=== PATIENT | female | born 1940 | race Caucasian/White ===

== ENCOUNTER 2016-07-15 13:28 | Inpatient (IN) | payer OTHER, MEDICARE ==
[~2016-07-15] VITALS: Ht 154.9 cm; Wt 65.0 kg
--- NOTE | 2016-07-23 06:56 | HHI.FF ---
Face to Face Verification Diagnosis: (1) Osteoarthritis of right hip (2) Status post total hip replacement, right Physical Therapy Gait training, Transfer training, bed to chair Hip: Total hip Right LE Weight Bearing: WB as tolerated Right LE Range of Motion: Active ROM Nursing Nursing: Sandee teaching, Dressing changes Dressing Changes: Daily dressing change I have seen patient Erica Cohn on 07/23/16. My clinical findings support the need for the requested home health care services because: Limited ability to care for self High risk of falls I certify that my clinical findings support that this patient is homebound because: Post-op weakness Unsteady gait/balance Nestor Ross Jul 23, 2016 06:56
--- NOTE | 2016-07-23 06:56 | HHI.DCPOC ---
Discharge Care Plan Diagnosis: (1) Osteoarthritis of right hip (2) Status post total hip replacement, right Your Health Problems Are: Difficulty with ADL Goals to Promote Your Health * To prevent worsening of your condition and complications * To maintain your health at the optimal level Directions to Meet Your Goals Take your medications as prescribed Follow your dietary instruction Follow activity as directed Keep your appointments as scheduled Take your immunizations and boosters as scheduled If your symptoms worsen call your PCP, if no PCP go to Urgent Care Center or Emergency Room Smoking is Dangerous to Your Health. Avoid second hand smoke Call the 24-hour hour crisis hotline for domestic abuse at Nestor Ross Jul 23, 2016 06:56
[2016-07-23] MEDS ORDERED: COMMODE 3-IN-11 MIS (06:58)
[2016-07-23] MEDS ORDERED: WALKER WHEELS/F1 MIS (06:58)
[2016-07-23] MEDS ORDERED: FLUT50SP EACH NARE (08:09)
[2016-07-23] MEDS ORDERED: HYDR12.57 PO (08:09)
[2016-07-23] MEDS ORDERED: EPIP0.3I IM (08:09)
[2016-07-23] MEDS ORDERED: OMEP20TA PO (08:09)
[2016-07-23] MEDS ORDERED: LOVA40TA PO (08:09)
[2016-07-23 08:13] VITALS: BP 116/57; PULSE 92; RESP 20; TEMP 97.9; O2SAT 100
[2016-07-23] MEDS ORDERED: DEXAMETHASONE SOD PHOS 20 MG/5 ML VIAL ONE (08:14)
[2016-07-23] MEDS ORDERED: SODIUM CHLOR 0.9% 250 ML INJ 250 ML ONE (08:14)
[2016-07-23] MEDS ORDERED: ceFAZolin 2 GM PREMIX 50 ML ONE (08:14)
[2016-07-23] MEDS ORDERED: LACTATED RINGER'S 1000 ML INJ 1,000 ML ONE (08:14)
[2016-07-23] MEDS ORDERED: VANCOMYCIN HCL 1000 MG VIAL ONE (08:14)
[2016-07-23] MEDS ORDERED: TRANEXAMIC ACID IV SCH (08:22)
[2016-07-23] MEDS ORDERED: SODIUM CHLORIDE 0.9% IV SCH (08:22)
[2016-07-23] MEDS: TRANEXAMIC ACID INJ 650 MG in SODIUM CHLORIDE 0.9% INJ 100 ML IV SCH ×2 (08:27→09:59)
[2016-07-23] MEDS ORDERED: EXPAREL PERI-ARTICULAR INJECTION (TOTAL VOL. 60 ML) P-ARTICULR SCH ×2 (08:30)
[2016-07-23] MEDS: LACTATED RINGER'S 1000 ML IV SCH (08:30)
[2016-07-23] MEDS ORDERED: ceFAZolin 2 GM PREMIX 50 ML IV SCH (08:30)
[2016-07-23] MEDS: SODIUM CHLORID 0.9% 500 ML IV SCH (08:30)
[2016-07-23] MEDS ORDERED: METOPROLOL TARTRATE 25 MG TAB PO PRN (08:30)
[2016-07-23] MEDS ORDERED: VANCOMYCIN 1000 MG/NS 250 ML (for <70 kg) IV SCH ×2 (08:30)
[2016-07-23] MEDS ORDERED: INSULIN HUMAN REGULAR 1,000 UNITS/10 ML VIAL SQ PRN (08:30)
[2016-07-23] MEDS ORDERED: POVIDONE IODINE 7.5% SCRUB 118 ML BOTTLE TOP SCH (08:30)
[2016-07-23] MEDS ORDERED: GENTAMICIN SULFATE 80 MG/2 ML VIAL ONE ×2 (09:01)
[2016-07-23] MEDS ORDERED: DEXAMETHASONE SOD PHOS 4 MG/ML VIAL ONE (09:47)
[2016-07-23] MEDS ORDERED: ACETAMINOPHEN 1000 MG/100 ML VIAL IV ONE (09:47)
[2016-07-23] MEDS ORDERED: FAMOTIDINE 20 MG/2 ML VIAL ONE (09:47)
[2016-07-23] MEDS ORDERED: ONDANSETRON HCL 4 MG/2 ML VIAL IV PUSH ONE (11:26)
[2016-07-23] MEDS ORDERED: PHENYLEPH/NS 1000 MCG/10 ML SYR IV ONE (11:26)
[2016-07-23] MEDS ORDERED: PROPOFOL 200 MG/20 ML AMP IV ONE (11:26)
[2016-07-23] MEDS ORDERED: NEOSTIGMINE 3 MG/3 ML SYR IV ONE (11:26)
[2016-07-23] MEDS ORDERED: LACTATED RINGER'S 1000 ML INJ 1,000 ML IV ONE (11:26)
[2016-07-23] MEDS: SODIUM CHLOR 0.9% 1000 ML INJ 1,000 ML IV SCH ×2 (11:42→22:25)
[2016-07-23] MEDS ORDERED: ONDANSETRON HCL 4 MG/2 ML VIAL IVP PRN (11:45)
[2016-07-23] MEDS ORDERED: MORPHINE SULFATE 4 MG/ML INJ IV PUSH PRN (11:45)
[2016-07-23] MEDS ORDERED: BISACODYL 10 MG SUPP PR PRN (11:45)
[2016-07-23] MEDS ORDERED: diphenhydrAMINE HCL 50 MG/ML VIAL IV PRN (11:45)
[2016-07-23] MEDS ORDERED: ALUMINUM/MAGNESIUM/SIMETH 30 ML CUP PO PRN (11:45)
[2016-07-23] MEDS ORDERED: SODIUM CHLORIDE 0.9% FLUSH 5 ML FLUSH IVF PRN (11:45)
[2016-07-23] MEDS ORDERED: ZOLPIDEM TARTRATE 5 MG TAB PO PRN (11:45)
[2016-07-23] MEDS ORDERED: MAGNESIUM HYDROXIDE SUSP 30 ML CUP PO PRN (11:45)
[2016-07-23] MEDS ORDERED: Post-op Orders (for Pharmacy) MISC XX ONE (11:45)
[2016-07-23] MEDS ORDERED: ACETAMINOPHEN/HYDROcodone 325 MG/5 MG TAB PO PRN (11:45)
[2016-07-23] MEDS ORDERED: NALOXONE HCL 0.4 MG/ML AMP IV PRN (11:45)
[2016-07-23] MEDS ORDERED: EPINEPHrine HCL 0.3 MG SYR IM PRN (11:45)
--- NOTE | 2016-07-23 11:45 | PD.OP ---
cc: Cy Gomez MD Operative Report Date of Surgery: Jul 23, 2016 Preoperative Diagnosis: Right hip severe osteoarthritis Postoperative Diagnosis: Same Procedure: Right total hip arthroplasty Anesthesia: Gen. Surgeon: Cy Gomez Patent Solicitor(s): LIONEL Rubin The surgical procedure was assisted by my Advanced Registered Nurse Practitioner. My AUTOMATIC MACHINES SUPERVISOR presence was necessary throughout this case for the manipulation and positioning of the surgical extremity. My AUTOMATIC MACHINES SUPERVISOR was assisting me throughout the duration of this procedure. The skill set of an Advance Registered Nurse Practitioner was medically necessary to complete this procedure. During the surgical case, the surgical garment assembler was working at the back table and the Advance Registered Nurse Practitioner was directly assisting me. Operation and Findings: IMPLANT DESCRIPTION: 1. [place] Gription Cup, acetabular size 48. 2. [place] AltrX polyethylene, neutral. 4. [place] femoral stem size 10, no collar, standard offset. 5. Femoral head/neck metal, 32, +1. ESTIMATED BLOOD LOSS: 250 cc. JUSTIFICATION FOR PROCEDURE: The patient has end-stage osteoarthritis to the hip. There is an attached conservative measures pathway form in the chart that describes the nonoperative measures that were undertaken prior to consideration of surgical management. The patient understood the risks and benefits of surgical management. See my office notes for further details. PROCEDURE: The patient was brought back to the operative theatre. Adequate anesthesia was obtained. The patient received intravenous vancomycin and Ancef. The patient was carefully placed on the operative table. The lower extremity was prepped and draped in the usual sterile fashion. Fluoroscopic images were obtained. We made a standard anterior incision over the hip. We dissected through the TFL fascia, exposing the anterior capsule. Arthrotomy was performed in a T-shaped fashion. The capsule was tagged with a #2 FiberWire. End-stage arthritis was identified. Osteotomy was performed through the femoral neck exposing the acetabulum. Remnants of the labrum were resected and osteophytes were removed. We sequentially reamed the acetabulum. We trialed the hip and placed the final cup into position. This was done under fluoroscopic guidance to obtain the appropriate inclination and anteversion. A manhole cover was placed into the acetabular component. We then placed the final polyethylene into position and confirmed that it was well seated. Capsular attachments on the calcar and the inner aspect of the greater trochanter were resected. On the proximal aspect of the femur we used a rongeur , box osteotome, canal finder, sequential broaches and lateralizing rasp. We calcar planed the proximal femur. Then thoroughly irrigated the wound. We trialed the hip with the appropriate size stem. We placed the final stem in to position and trialed again. The hip was stable while it was externally rotated 70 degrees when the leg was lowered to the floor. The final head was applied, and final fluoroscopic images were obtained. The wound was thoroughly irrigated again. Interarticular injection of liposomal bupivacaine was given. The capsule was closed with #2 FiberWire and #1 Vicryl. The deep fascia was closed with a #2 Stratafix, followed by 2-0 Vicryl in the skin and ji. Postop plan is to weight-bear as tolerated. DVT prophylaxis will be performed with Mary, ZINA elizabeth, early mobilization, and Lovenox followed by aspirin. Cy Gomez MD Jul 23, 2016 11:45
[2016-07-23] MEDS ORDERED: ASPI325T PO (11:47)
[2016-07-23] MEDS ORDERED: ENOX40P SQ (11:47)
[2016-07-23] MEDS ORDERED: NORC5TAB PO (11:47)
--- NOTE | 2016-07-23 12:00 | RADRPT ---
EXAM DATE/TIME: 07/23/2016 10:31 [facility] COMPARISON: No previous studies available for comparison. INDICATIONS : Post-op total right hip arthroplasty. MEDICAL HISTORY : None. SURGICAL HISTORY : None. ENCOUNTER: Initial ACUITY: 1 day PAIN SCORE: Non-responsive. LOCATION: Right hip. FINDINGS: 3 images from the OR have been submitted. There is a right bipolar hip prosthesis in place. This is w ell placed. CONCLUSION: Successful placement of a bipolar hip prosthesis on the right. Carlos Perez MD on July 23, 2016 at 11:58 Board Certified Radiologist. This report was verified electronically.
[2016-07-23] MEDS ORDERED: fentaNYL CITRATE 250 MCG/5 ML AMP ONE (12:08)
[2016-07-23] MEDS ORDERED: DO NOT ADM ANY ANTICOAGULANT DRUGS XX PRN (12:30)
[2016-07-23] MEDS ORDERED: TRANEXAMIC ACID INJ 650 MG in SODIUM CHLORIDE 0.9% INJ 100 ML IV SCH (13:00)
--- NOTE | 2016-07-23 13:30 | RADRPT ---
EXAM DATE/TIME: 07/23/2016 12:36 [facility] COMPARISON: No previous studies available for comparison. INDICATIONS : Post op right hip surgery. MEDICAL HISTORY : Unobtainable. SURGICAL HISTORY : Unobtainable. ENCOUNTER: Initial ACUITY: 1 day PAIN SCORE: Non-responsive. LOCATION: Right hip. FINDINGS: There is a right bipolar hip prosthesis in place. This appears well placed. Skin ji are seen lat erally. There is degenerative change seen at the left hip joint with joint space narrowing and hypert rophic change. CONCLUSION: Good placement of a right bipolar hip prosthesis. Carlos Perez MD on July 23, 2016 at 13:27 Board Certified Radiologist. This report was verified electronically.
[2016-07-23 15:30] VITALS: BP 117/59; PULSE 83; RESP 16; TEMP 96.6; O2SAT 99
--- NOTE | 2016-07-23 16:29 | PD.CONS ---
[facility] By Reason for Consult Medical management Primary Care Physician Eula Ross M.D. Diagnoses: History of Present Illness Patient is a very pleasant 76-year-old female with history of hypertension, hypercholesterolemia who is admitted under orthopedic services and underwent right total hip arthroplasty today. Patient actually has been dealing with this right hip pain for the past 6 years now however for the last couple of weeks has been getting more pain. She lately has been using a cane for ambulation for safety. Otherwise patient is denies any chest pain shortness of breath. Her breast mammogram and colonoscopy are all up-to-date. [facility]. Review of Systems Constitutional: DENIES: Fever, Weight loss, Chills, Change in appetite Eyes: DENIES: Blurred vision, Double Vision Ears, nose, mouth, throat: DENIES: Tinnitus, Ear Pain, Epistaxis, Odynophagia Respiratory: DENIES: Cough, Hemoptysis, Sputum production, Shortness of breath Cardiovascular: DENIES: Chest pain, Palpitations, Dyspnea on Exertion, Lower Extremity Edema, Orthopnea Gastrointestinal: DENIES: Black stools, Bloody stools, Difficulty Swallowing, Anorexia Genitourinary: DENIES: Urgency, Hematuria, Vaginal discharge Musculoskeletal: COMPLAINS OF: Joint pain (right hip pain C history of present illness), DENIES: Stiffness Integumentary: DENIES: Pruritus Hematologic/lymphatic: DENIES: Bruising Immunologic/allergic: DENIES: Urticaria Neurologic: DENIES: Headache, Speech Problems, Tremor Psychiatric: DENIES: Suicidal Ideation, Homicidal Ideation Past Family Social History Allergies: Coded Allergies: No Known Allergies (Unverified , 07/23/16) Past Medical History Hypertension Hyperlipidemia Past Surgical History No major surgeries Reported Medications Hydrochlorothiazide 12.5 mg daily Pravastatin Active Ordered Medications See EMR Family History Noncontributory Social History Quit smoking many many years ago Very occasional beer No history of substance abuse Physical Exam Vital Signs Vital Signs Date Time Temp Pulse Resp B/P Pulse Ox O2 Delivery O2 Flow Rate FiO2 07/23/16 15:00 99.0 96 20 138/60 100 Nasal Cannula 2 07/23/16 14:00 80 20 102/55 100 Nasal Cannula 2 07/23/16 13:45 80 20 109/54 100 Nasal Cannula 2 07/23/16 13:30 80 20 107/55 100 Nasal Cannula 2 07/23/16 13:15 80 20 100/52 100 Nasal Cannula 2 07/23/16 13:00 81 20 113/56 94 Room Air 07/23/16 12:45 83 20 124/60 96 Room Air 07/23/16 12:30 80 20 108/54 96 Room Air 07/23/16 12:15 78 20 117/56 97 Room Air 07/23/16 12:02 99.2 78 20 130/63 98 Simple Mask 6 07/23/16 08:13 97.9 92 20 116/57 100 Physical Exam GENERAL: This is a well-nourished, well-developed patient, in no apparent distress. SKIN: No rashes, ecchymoses or lesions. Cool and dry. HEAD: Atraumatic. Normocephalic. No temporal or scalp tenderness. EYES: Pupils equal round and reactive. Extraocular motions intact. No scleral icterus. No injection or drainage. ENT: Nose without bleeding, purulent drainage or septal hematoma. Throat without erythema, tonsillar hypertrophy or exudate. Uvula midline. Airway patent. NECK: Trachea midline. No JVD or lymphadenopathy. Supple, nontender, no meningeal signs. CARDIOVASCULAR: Regular rate and rhythm without murmurs, gallops, or rubs. RESPIRATORY: Clear to auscultation. Breath sounds equal bilaterally. No wheezes , rales, or rhonchi. GASTROINTESTINAL: Abdomen soft, non-tender, nondistended. No hepato-splenomegaly , or palpable masses. No guarding. MUSCULOSKELETAL: Right hip post op dressing in place. No calf tenderness. Negative Homans sign bilaterally. NEUROLOGICAL: Awake and alert. Cranial nerves II through XII intact. Motor and sensory grossly within normal limits. . Normal speech. Laboratory Laboratory Tests Test 07/23/16 07:55 Blood Type A POSITIVE Antibody Screen NEGATIVE Blood Bank Comment Imaging Last Impressions Hip and Pelvis X-Ray 07/23/16 1142 Signed Impressions: Service Date/Time: Saturday, July 23, 2016 12:36 - CONCLUSION: Good placement of a right bipolar hip prosthesis. Carlos Perez MD Hip X-Ray 07/23/16 0000 Signed Impressions: Service Date/Time: Saturday, July 23, 2016 10:31 - CONCLUSION: Successful placement of a bipolar hip prosthesis on the right. Carlos Perez MD Assessment and Plan Assessment and Plan 76-year-old female Status post right total hip arthroplasty Orthopedic service is following Physical therapy daily Patient very motivated and actually had up and ambulated today and made small steps. History of hypertension continue hydrochlorothiazide 12.5 mg daily History of hyperlipidemia continue pravastatin On Lovenox for DVT prophylaxis DC planning patient wants to go home with home health case management following along with us thank you for this consult we'll follow patient in-house with you Discussed Condition With Patient Lai Jaquez MD Jul 23, 2016 16:29
[2016-07-23 18:02] VITALS: O2SAT 100
[2016-07-23 20:00] VITALS: BP 120/60; PULSE 87; RESP 16; TEMP 96.7; O2SAT 96
[2016-07-23] MEDS: SODIUM CHLORIDE 0.9% FLUSH 5 ML FLUSH IVF SCH (21:00)
[2016-07-23] MEDS: ACETAMINOPHEN/HYDROcodone 325 MG/5 MG TAB PO PRN (22:25)
[2016-07-24] VITALS: BP 123/61; PULSE 94; RESP 16; TEMP 97.1; O2SAT 94
[2016-07-24] MEDS: SODIUM CHLORID 0.9% 500 ML IV SCH (01:10)
[2016-07-24 04:00] VITALS: BP 108/61; PULSE 77; RESP 16; TEMP 96.4; O2SAT 94
[2016-07-24] MEDS: ACETAMINOPHEN/HYDROcodone 325 MG/5 MG TAB PO PRN ×3 (06:16→15:41)
[2016-07-24 07:00] LABS: HEMATOCRIT 27.8 % (35.0-46.0); MEAN CELL VOLUME 90.9 FL (80.0-100.0); MEAN CORPUSCULAR HEMOGLOBIN 32.3 PG (27.0-34.0); MEAN CORPUSCULAR HGB CONC 35.6 % (32.0-36.0); PLATELET COUNT 307 TH/MM3 (150-450); RED BLOOD COUNT 3.06 MIL/MM3 (4.00-5.30); RED CELL DISTRIBUTION WIDTH 12.7 % (11.6-17.2); REVIEW FLAG FINAL; WHITE BLOOD COUNT 9.8 TH/MM3 (4.0-11.0)
[2016-07-24] MEDS: SODIUM CHLOR 0.9% 1000 ML INJ 1,000 ML IV SCH (07:42)
[2016-07-24] MEDS ORDERED: DEXAMETHASONE SOD PHOS 20 MG/5 ML VIAL IV ONE (08:00)
[2016-07-24 08:06] VITALS: BP 99/58; PULSE 74; RESP 16; TEMP 95.8; O2SAT 96
[2016-07-24] MEDS: LACTATED RINGER'S 1000 ML IV SCH (08:30)
[2016-07-24] MEDS ORDERED: PANTOPRAZOLE SOD 20 MG DELAYED RELEASE TAB PO SCH (09:00)
[2016-07-24] MEDS ORDERED: HYDROCHLOROTHIAZIDE 12.5 MG CAP PO SCH (09:00)
[2016-07-24] MEDS ORDERED: PRAVASTATIN SOD 40 MG TAB PO SCH (09:00)
[2016-07-24] MEDS ORDERED: PNEUMOCOCCAL POLYVALENT INJ 25 MCG/0.5 ML SYR IM ONE (10:00)
[2016-07-24] MEDS: SODIUM CHLORIDE 0.9% FLUSH 5 ML FLUSH IVF SCH (10:12)
[2016-07-24] MEDS ORDERED: ENOXAPARIN SODIUM 40 MG/0.4 ML SYRINGE SQ SCH (11:00)
[2016-07-24 12:20] VITALS: BP 104/64; PULSE 70; RESP 16; TEMP 96.1; O2SAT 97
--- NOTE | 2016-07-24 13:06 | PD.ORT.PN ---
Subjective Post Op Day #: 1 Subjective Remarks Patient is OOB in chair with minimal pain to the right hip. No pain to the right knee like she had prior to surgery. Patient is requesting to go home with home health today. Objective Vitals Vital Signs Date Time Temp Pulse Resp B/P Pulse Ox O2 Delivery O2 Flow Rate FiO2 07/24/16 12:20 96.1 70 16 104/64 97 07/24/16 08:06 95.8 74 16 99/58 96 07/24/16 04:00 96.4 77 16 108/61 94 07/24/16 00:00 97.1 94 16 123/61 94 07/23/16 20:00 96.7 87 16 120/60 96 07/23/16 19:12 Room Air 07/23/16 18:02 100 Nasal Cannula 2.00 07/23/16 15:30 96.6 83 16 117/59 99 07/23/16 15:00 99.0 96 20 138/60 100 Nasal Cannula 2 07/23/16 14:00 80 20 102/55 100 Nasal Cannula 2 07/23/16 13:45 80 20 109/54 100 Nasal Cannula 2 07/23/16 13:30 80 20 107/55 100 Nasal Cannula 2 07/23/16 13:15 80 20 100/52 100 Nasal Cannula 2 07/23/16 13:00 81 20 113/56 94 Room Air I/O 07/23/16 07/23/16 07/23/16 07/24/16 07/24/16 07/24/16 07:00 15:00 23:00 07:00 15:00 23:00 Intake Total 1699 ml 1086 ml 551 ml Output Total 665 ml 400 ml Balance 1034 ml 686 ml 551 ml Intake Oral 240 ml 240 ml IV Total 499 ml 846 ml 311 ml Other 1200 ml Output Urine Total 565 ml 400 ml Estimated Blood Loss 100 ml # Voids 1 2 # Bowel Movements 0 0 Result Diagram: 07/24/16 0634 Procedures Right TERRI Objective Remarks The patient's dressing was changed today with scant serosanguineous drainage. Incision is well approximated with surgical clips intact. No redness or s/s of infection. Mild ecchymosis to the right hip. EHL/TA/G intact. 2+ pedal pulse. + SILT. Calf is soft and nontender. Minimal swelling. Assessment & Plan Ortho Post Op Day #: 1 Problem List: Assessment and Plan POD #1: Right TERRI 1. WBAT RLE 2. Lovenox for DVT prophylaxis 3. Ice to the right hip PRN 4. Patient is stable for discharge home with home health today. Nestor Ross Jul 24, 2016 13:06
--- NOTE | 2016-07-24 13:59 | HHI.PR ---
Subjective Remarks patient states she is "doing great" pain controlled + lots of flatus Objective Vitals Vital Signs Date Time Temp Pulse Resp B/P Pulse Ox O2 Delivery O2 Flow Rate FiO2 07/24/16 12:20 96.1 70 16 104/64 97 07/24/16 08:06 95.8 74 16 99/58 96 07/24/16 04:00 96.4 77 16 108/61 94 07/24/16 00:00 97.1 94 16 123/61 94 07/23/16 20:00 96.7 87 16 120/60 96 07/23/16 19:12 Room Air 07/23/16 18:02 100 Nasal Cannula 2.00 07/23/16 15:30 96.6 83 16 117/59 99 07/23/16 15:00 99.0 96 20 138/60 100 Nasal Cannula 2 07/23/16 14:00 80 20 102/55 100 Nasal Cannula 2 I/O 07/23/16 07/23/16 07/23/16 07/24/16 07/24/16 07/24/16 07:00 15:00 23:00 07:00 15:00 23:00 Intake Total 1699 ml 1086 ml 551 ml Output Total 665 ml 400 ml Balance 1034 ml 686 ml 551 ml Intake Oral 240 ml 240 ml IV Total 499 ml 846 ml 311 ml Other 1200 ml Output Urine Total 565 ml 400 ml Estimated Blood Loss 100 ml # Voids 1 2 # Bowel Movements 0 0 Result Diagram: 07/24/16 0634 Objective Remarks awake and alert, NAD anicteric lungs clear regular rhythm left hip- post op dressing in place ambulated well with a walker no calf tenderness Procedures 07/23- left TERRI A/P Assessment and Plan 76-year-old female Status post right total hip arthroplasty 07/23 Orthopedic service- cleared for DC Physical therapy daily Patient very motivated and actually had up and ambulated today and made small steps. History of hypertension continue hydrochlorothiazide 12.5 mg daily History of hyperlipidemia continue pravastatin Home today with [facility] after class advise patient to call her PCP - Dr. Ross -early next week for ff up Lai Jaquez MD Jul 24, 2016 13:59
[2016-07-24] MEDS ORDERED: DOCUSATE SODIUM 100 MG CAP PO SCH (21:00)
[2016-07-24] MEDS ORDERED: MULTIVITAMINS/MINERALS THERAPEUTIC TAB PO SCH (21:00)
--- NOTE | 2016-07-27 20:59 | HHI.DS ---
Discharge Summary Admission Date Jul 23, 2016 at 06:41 Discharge Date: Jul 24, 2016 Admitting Diagnosis right hip OA Diagnosis: (1) Osteoarthritis of right hip Diagnosis: Principal Procedures Right TERRI Brief History This is a 76 year old female patient with severe OA of the right hip. CBC/BMP: 07/24/16 0634 PE at Discharge The patient's dressing was changed today with scant serosanguineous drainage. Incision is well approximated with surgical clips intact. No redness or s/s of infection. Mild ecchymosis to the right hip. EHL/TA/G intact. 2+ pedal pulse. + SILT. Calf is soft and nontender. Minimal swelling. Hospital Course The patient was admitted to the hospital for severe OA of the right hip to have a right TERRI. The patient's surgery went well with no complications. The patient is WBAT. The patient has a regular diet. The patient's pain is well managed with PO medication. The patient was discharged home with home health. The patient will f/u with Dr. Gomez in 1-2 weeks. Pt Condition on Discharge: Stable Discharge Disposition: Disch w/ Home Health Serv Discharge Instructions Diet Instructions: As Tolerated, No Restrictions Activities You Can Perform: Weight Bearing as Scott Activities to Avoid: Strenuous Activity Follow up Referrals: Orthopedics with Cy Gomez MD SNF/[facility]/ with [facility] New Medications: Aspirin (Aspirin) 325 Mg Tab 325 MG PO DAILY Start Aspirin after Lovenox is completed. Prevent Blood Clot # 30 Ref 0 TAB Commode 3-in-1 (Commode 3-in-1) 1 Mis Mis 1 EA .ROUTE DIRECTED #1 Ref 0 EA Enoxaparin Inj (Lovenox Inj) 40 Mg/0.4 Ml Syr 40 MG SQ DAILY Start Aspirin after Lovenox is completed. Blood Clot Prevention # 10 Ref 0 SYRINGE Hydrocodone-Acetaminophen ([place]) 5-325 mg Tab 1-2 TAB PO Q4H PRN PAIN #60 Ref 0 TAB Walker with Front Wheels (Walker with Front Wheels) 1 Mis Mis 1 EA .ROUTE DIRECTED #1 Ref 0 EA Nestor Ross Jul 27, 2016 20:59
== END 2016-07-24 15:49 | disposition home health service (06) | DRG 470 ==
LOC: HSDI 07-23 06:41 → N06A 07-23 15:08
PROVIDERS: ADMIT Orthopaedic Surgery; ATTEND Orthopaedic Surgery
PROC: 0SR902A Replacement of Right Hip Joint with Metal on Polyethylene Synthetic Substitute, Uncemented, Open Approach (ICD-10-PCS; principal; 2016-07-23 09:50)
DX: M16.11 Unilateral primary osteoarthritis, right hip (principal); I10 Essential (primary) hypertension; E78.00 Pure hypercholesterolemia, unspecified; E78.5 Hyperlipidemia, unspecified; Z87.891 Personal history of nicotine dependence; Z23 Encounter for immunization
CPT/HCPCS: 73502; 76000; 85027; 86850; 86900; 86901; 90471; 90732; 94150; C1776; C9290; G0009; J0131; J0690; J1100; J1580; J1650; J2370; J2405; J2710; J3010; J3370; J7030; J7050; J7120

== ENCOUNTER 2016-10-21 13:45 | Inpatient (IN) | payer OTHER, MEDICARE ==
[~2016-10-21] VITALS: Ht 154.9 cm; Wt 61.8 kg
[~2016-10-21 13:45] MED LIST: ASPI325T PO; COMMODE 3-IN-11 MIS; ENOX40P SQ; EPIP0.3I IM; HYDR12.57 PO; LOVA40TA PO; NORC5TAB PO; OMEP20TA PO; WALKER WHEELS/F1 MIS
[2016-11-07] MEDS ORDERED: MELO-1 PO (10:53)
[2016-11-12] MEDS ORDERED: CHLORHEXIDINE GLUCONATE 2 % 1 PACK (2 CLOTHS) TOPICAL PRN (05:45)
[2016-11-12] MEDS ORDERED: METOPROLOL TARTRATE 25 MG TAB PO PRN (05:45)
[2016-11-12] MEDS ORDERED: LACTATED RINGER'S 1000 ML IV PRN (05:45)
[2016-11-12] MEDS ORDERED: SODIUM CHLORID 0.9% 500 ML IV PRN (05:45)
[2016-11-12] MEDS ORDERED: VANCOMYCIN 1000 MG/NS 250 ML (for <70 kg) IV SCH ×2 (05:45)
[2016-11-12] MEDS ORDERED: POVIDONE IODINE 7.5% SCRUB 118 ML BOTTLE TOPICAL SCH (05:45)
[2016-11-12] MEDS ORDERED: POVIDONE IODINE 5% (ANTISEPSIS KIT) 4 APPLICATIONS EACH NARE PRN (05:45)
[2016-11-12] MEDS ORDERED: INSULIN HUMAN REGULAR 1,000 UNITS/10 ML VIAL SQ PRN (05:45)
[2016-11-12] MEDS ORDERED: ceFAZolin 2 GM PREMIX 50 ML IV SCH (05:45)
[2016-11-12 05:54] VITALS: BP 119/60; PULSE 89; RESP 16; TEMP 98; O2SAT 98
[2016-11-12] MEDS ORDERED: DEXAMETHASONE SOD PHOS 20 MG/5 ML VIAL IV SCH (06:00)
[2016-11-12] MEDS ORDERED: GENTAMICIN SULFATE 80 MG/2 ML VIAL ONE (06:13)
[2016-11-12] MEDS ORDERED: ACETAMINOPHEN 1000 MG/100 ML VIAL IV ONE (06:36)
[2016-11-12] MEDS ORDERED: MIDAZOLAM HCL 2 MG/2 ML VIAL ONE (06:37)
[2016-11-12] MEDS ORDERED: FAMOTIDINE 20 MG/2 ML VIAL ONE (06:37)
[2016-11-12] MEDS ORDERED: fentaNYL CITRATE 250 MCG/5 ML AMP ONE ×2 (06:37→09:09)
--- NOTE | 2016-11-12 06:50 | HHI.FF ---
Face to Face Verification Diagnosis: (1) Osteoarthritis of left hip (2) Status post total hip replacement, left Physical Therapy Gait training, Transfer training, bed to chair Hip: Total hip Left LE Weight Bearing: WB as tolerated Left LE Range of Motion: Active ROM Nursing Nursing: Sandee teaching, Dressing changes Dressing Changes: Daily dressing change I have seen patient Erica Cohn on 11/12/16. My clinical findings support the need for the requested home health care services because: Limited ability to care for self High risk of falls I certify that my clinical findings support that this patient is homebound because: Post-op weakness Unsteady gait/balance Nestor Ross Nov 12, 2016 06:50
--- NOTE | 2016-11-12 06:50 | HHI.DCPOC ---
Discharge Care Plan Diagnosis: (1) Status post total hip replacement, left (2) Osteoarthritis of left hip Your Health Problems Are: Difficulty with ADL Goals to Promote Your Health * To prevent worsening of your condition and complications * To maintain your health at the optimal level Directions to Meet Your Goals Take your medications as prescribed Follow your dietary instruction Follow activity as directed Keep your appointments as scheduled Take your immunizations and boosters as scheduled If your symptoms worsen call your PCP, if no PCP go to Urgent Care Center or Emergency Room Smoking is Dangerous to Your Health. Avoid second hand smoke Call the 24-hour hour crisis hotline for domestic abuse at Nestor Ross Nov 12, 2016 06:50
[2016-11-12] MEDS ORDERED: COMMODE 3-IN-11 MIS (06:52)
[2016-11-12] MEDS ORDERED: WALKER WHEELS/F1 MIS (06:52)
[2016-11-12] MEDS ORDERED: EXPAREL PERI-ARTICULAR INJECTION (TOTAL VOL. 60 ML) P-ARTICULR SCH ×2 (07:00)
[2016-11-12] MEDS ORDERED: TRANEXAMIC ACID INJ 618 MG in SODIUM CHLORIDE 0.9% INJ 100 ML IV SCH ×2 (07:00→08:45)
--- NOTE | 2016-11-12 08:41 | PD.OP ---
cc: Cy Gomez MD Operative Report Date of Surgery: Nov 12, 2016 Preoperative Diagnosis: Left hip severe osteoarthritis Postoperative Diagnosis: Same Procedure: Left total hip arthroplasty Anesthesia: Gen. Surgeon: Cy Gomez Agile Java Developer(s): LIONEL Rubin The surgical procedure was assisted by my Advanced Registered Nurse Practitioner. My AQUACULTURE PROGRAM DIRECTOR presence was necessary throughout this case for the manipulation and positioning of the surgical extremity. My AQUACULTURE PROGRAM DIRECTOR was assisting me throughout the duration of this procedure. The skill set of an Advance Registered Nurse Practitioner was medically necessary to complete this procedure. During the surgical case, the surgical endoscopist was working at the back table and the Advance Registered Nurse Practitioner was directly assisting me. Operation and Findings: IMPLANT DESCRIPTION: 1. [place] Gription Cup, acetabular size 48. 2. [place] AltrX polyethylene, neutral. 4. [place] femoral stem size 10, no collar, standard offset. 5. Femoral head/neck L, 32, +1. ESTIMATED BLOOD LOSS: 150 cc. JUSTIFICATION FOR PROCEDURE: The patient has end-stage osteoarthritis to the hip. There is an attached conservative measures pathway form in the chart that describes the nonoperative measures that were undertaken prior to consideration of surgical management. The patient understood the risks and benefits of surgical management. See my office notes for further details. PROCEDURE: The patient was brought back to the operative theatre. Adequate anesthesia was obtained. The patient received intravenous vancomycin and Ancef. The patient was carefully placed on the operative table. The lower extremity was prepped and draped in the usual sterile fashion. Fluoroscopic images were obtained. We made a standard anterior incision over the hip. We dissected through the TFL fascia, exposing the anterior capsule. Arthrotomy was performed in a T-shaped fashion. The capsule was tagged with a #2 FiberWire. End-stage arthritis was identified. Osteotomy was performed through the femoral neck exposing the acetabulum. Remnants of the labrum were resected and osteophytes were removed. We sequentially reamed the acetabulum. We trialed the hip and placed the final cup into position. This was done under fluoroscopic guidance to obtain the appropriate inclination and anteversion. A manhole cover was placed into the acetabular component. We then placed the final polyethylene into position and confirmed that it was well seated. Capsular attachments on the calcar and the inner aspect of the greater trochanter were resected. On the proximal aspect of the femur we used a rongeur , box osteotome, canal finder, sequential broaches and lateralizing rasp. We calcar planed the proximal femur. Then thoroughly irrigated the wound. We trialed the hip with the appropriate size stem. We placed the final stem in to position and trialed again. The hip was stable while it was externally rotated 70 degrees when the leg was lowered to the floor. The final head was applied, and final fluoroscopic images were obtained. The wound was thoroughly irrigated again. Interarticular injection of liposomal bupivacaine was given. The capsule was closed with #2 FiberWire and #1 Vicryl. The deep fascia was closed with a #2 Stratafix, followed by 2-0 Vicryl in the skin and ji. Postop plan is to weight-bear as tolerated. DVT prophylaxis will be performed with Mary, ZINA elizabeth, early mobilization, and Lovenox followed by aspirin. Cy Gomez MD Nov 12, 2016 08:41
[2016-11-12] MEDS ORDERED: ENOX40P SQ (08:43)
[2016-11-12] MEDS ORDERED: ASPI325T PO (08:43)
[2016-11-12] MEDS ORDERED: NORC5TAB PO (08:43)
[2016-11-12] MEDS ORDERED: EPINEPHrine HCL 0.3 MG SYR IM PRN (08:45)
[2016-11-12] MEDS ORDERED: ZOLPIDEM TARTRATE 5 MG TAB PO PRN (08:45)
[2016-11-12] MEDS ORDERED: ONDANSETRON HCL 4 MG/2 ML VIAL IVP PRN (08:45)
[2016-11-12] MEDS ORDERED: BISACODYL 10 MG SUPP RECTAL PRN (08:45)
[2016-11-12] MEDS ORDERED: MAGNESIUM HYDROXIDE SUSP 30 ML CUP PO PRN (08:45)
[2016-11-12] MEDS ORDERED: NALOXONE HCL 0.4 MG/ML AMP IV PRN (08:45)
[2016-11-12] MEDS ORDERED: ACETAMINOPHEN/HYDROcodone 325 MG/5 MG TAB PO PRN (08:45)
[2016-11-12] MEDS ORDERED: MORPHINE SULFATE 4 MG/ML INJ IV PUSH PRN (08:45)
[2016-11-12] MEDS ORDERED: ALUMINUM/MAGNESIUM/SIMETH 30 ML CUP PO PRN (08:45)
[2016-11-12] MEDS ORDERED: diphenhydrAMINE HCL 50 MG/ML VIAL IV PRN (08:45)
[2016-11-12] MEDS ORDERED: SODIUM CHLORIDE 0.9% FLUSH 5 ML FLUSH IVF PRN (08:45)
[2016-11-12] MEDS ORDERED: Post-op Orders (for Pharmacy) MISC XX ONE (08:54)
[2016-11-12] MEDS ORDERED: *morphine SULFATE 8 MG/ML PERIprocedure ONLY ONE (09:33)
--- NOTE | 2016-11-12 09:45 | RADRPT ---
EXAM DATE/TIME: 11/12/2016 09:19 [facility] COMPARISON: No previous studies available for comparison. INDICATIONS : Post-op left hip. MEDICAL HISTORY : None. SURGICAL HISTORY : Right hip surgery. ENCOUNTER: Initial ACUITY: 1 day PAIN SCORE: 5/10 LOCATION: Left Hip. FINDINGS: Patient is status post placement of a left hip prosthesis. There is good position and alignment of th e prosthesis and bony structures. The bony structures are grossly intact. Postsurgical changes are pr esent. CONCLUSION: Good position and alignment on this postoperative examination. Giancarlo Young MD on November 12, 2016 at 9:42 Board Certified Radiologist. This report was verified electronically.
[2016-11-12] MEDS: SODIUM CHLOR 0.9% 1000 ML INJ 1,000 ML IV SCH ×2 (10:00→18:36)
--- NOTE | 2016-11-12 11:05 | PD.CONS ---
HPI Service [facility] Consult Requested By Dr. Gomez Reason for Consult Medical management Primary Care Physician Eula Ross M.D. Diagnoses: History of Present Illness This is a 76-year-old female with a history of constant aching left hip pain secondary to osteoarthritis. Underwent hip arthroplasty by Dr. Gomez who requested consultation to evaluate and manage multiple medical conditions. Anesthesia records reviewed show she received 1500 mL crystalloid and EBL of 650 mL. Urine output not measured. At this time, she has no complaints except for minimal left hip pain. States she has hypertension controlled on hydrochlorothiazide, hyperlipidemia controlled on Pravachol she does not know her latest profile and GERD stable on PPI though cannot remember the name. She also was treated for UTI with unrecalled antibiotic which she finished on . Repeat urinalysis showed small leukoesterase. She denies UTI symptoms. All other systems reviewed negative. Seen in PACU discussed with mill machinist of Systems Except as stated in HPI: all other systems reviewed are Neg Past Family Social History Allergies: Coded Allergies: Bee Sting (Verified Allergy, Severe, Anaphylaxis, 11/12/16) Past Medical History As previously mentioned. She was told she has a heart murmur Past Surgical History Right hip surgery Reported Medications Lovastatin 40 Mg Tab 40 Mg PO DAILY Hydrochlorothiazide 12.5 Mg Cap 12.5 Mg PO DAILY Epipen 2-Pierre Inj (Epinephrine) 0.3 Mg/0.3 Ml Pfpen 0.3 Mg IM ONCE PRN Family History Heart disease Social History She quit smoking. Occasional alcohol use Physical Exam Vital Signs Vital Signs Date Time Temp Pulse Resp B/P Pulse Ox O2 Delivery O2 Flow Rate FiO2 11/12/16 09:45 81 15 129/58 95 Nasal Cannula 3 11/12/16 09:38 15 11/12/16 09:30 83 14 133/65 94 Nasal Cannula 3 11/12/16 09:15 82 14 142/68 97 Nasal Cannula 4 11/12/16 09:00 98.0 82 10 149/69 95 Nasal Cannula 4 11/12/16 05:54 98.0 89 16 119/60 98 Physical Exam GENERAL: This is a well-nourished, well-developed patient, in no apparent distress. SKIN: No rashes, ecchymoses or lesions. Cool and dry. HEAD: Atraumatic. Normocephalic. No temporal or scalp tenderness. EYES: Pupils equal round and reactive. Extraocular motions intact. No scleral icterus. No injection or drainage. ENT: Nose without bleeding, purulent drainage or septal hematoma. Throat without erythema, tonsillar hypertrophy or exudate. Uvula midline. Airway patent. NECK: Trachea midline. No JVD or lymphadenopathy. Supple, nontender, no meningeal signs. CARDIOVASCULAR: Regular rate and rhythm without murmurs, gallops, or rubs. RESPIRATORY: Clear to auscultation. Breath sounds equal bilaterally. No wheezes , rales, or rhonchi. GASTROINTESTINAL: Abdomen soft, non-tender, nondistended. No guarding. MUSCULOSKELETAL: Extremities without clubbing, cyanosis, or edema. Left hip with dressing NEUROLOGICAL: Awake and alert. Cranial nerves II through XII intact. Motor and sensory grossly within normal limits. Five out of 5 muscle strength in all muscle groups. Normal speech. Laboratory Preop labs reviewed CBC remarkable for a white count of 5000 hemoglobin of 12 platelet count of 345 BMP remarkable for a sodium 150 chloride 113 potassium 4 urine nitrogen 18 creatinine 1 glucose 96. EKG tracing interpreted by me with sinus rhythm and LVH by voltage Test 11/12/16 05:50 Blood Type A POSITIVE Antibody Screen NEGATIVE Imaging Last Impressions Hip and Pelvis X-Ray 11/12/16 0836 Signed Impressions: Service Date/Time: Saturday, November 12, 2016 09:19 - CONCLUSION: Good position and alignment on this postoperative examination. Giancarlo Young MD Assessment and Plan Assessment and Plan This is a 76-year-old female with a history of constant aching left hip pain secondary to osteoarthritis. Underwent hip arthroplasty by Dr. Gomez who requested consultation to evaluate and manage multiple medical conditions. Anesthesia records reviewed show she received 1500 mL crystalloid and EBL of 650 mL. Urine output not measured. At this time, she has no complaints except for minimal left hip pain. She is stable continue postoperative care with physical therapy, wound care, pain management with Lortab and IV morphine sulfate and DVT prophylaxis with Lovenox . Monitor for postoperative anemia check CBC in the morning Hypertension controlled on hydrochlorothiazide. Continue to monitor Hyperlipidemia controlled on Pravacho GERD stable on PPI name she cannot remember. RN to verify. Hypernatremia and hyperchloremia on preop labs. Repeat BMP and mag in the morning Discussed Condition With Patient and nursing staff Darrius Mccartney MD Nov 12, 2016 11:05
[2016-11-12] MEDS ORDERED: PROPOFOL 200 MG/20 ML AMP IV ONE (12:00)
[2016-11-12] MEDS ORDERED: LACTATED RINGER'S 1000 ML INJ 1,000 ML IV ONE (12:00)
[2016-11-12] MEDS ORDERED: PHENYLEPH/NS 1000 MCG/10 ML SYR IV ONE (12:00)
[2016-11-12] MEDS ORDERED: ONDANSETRON HCL 4 MG/2 ML VIAL IV PUSH ONE (12:00)
[2016-11-12 14:00] VITALS: BP 150/78; PULSE 86; RESP 18; TEMP 97.8; O2SAT 98
--- NOTE | 2016-11-12 14:02 | RADRPT ---
EXAM DATE/TIME: 11/12/2016 07:15 [facility] COMPARISON: No previous studies available for comparison. INDICATIONS : Left total hip replacement. MEDICAL HISTORY : None. SURGICAL HISTORY : None. ENCOUNTER: Initial ACUITY: 1 day PAIN SCORE: Non-responsive. LOCATION: Left hip FINDINGS: Patient is status post placement of a left hip prosthesis. There is good position and alignment of th e prosthesis and bony structures. The bony structures are grossly intact. Postsurgical changes are pr esent. CONCLUSION: Good position and alignment on this postoperative examination. Giancarlo Young MD on November 12, 2016 at 13:59 Board Certified Radiologist. This report was verified electronically.
[2016-11-12] MEDS: PRAVASTATIN SOD 40 MG TAB PO SCH (15:29)
[2016-11-12] MEDS: HYDROCHLOROTHIAZIDE 12.5 MG CAP PO SCH (15:29)
[2016-11-12] MEDS: SODIUM CHLORIDE 0.9% FLUSH 5 ML FLUSH IVF SCH ×2 (15:29→21:00)
[2016-11-12 16:00] VITALS: BP 137/73; PULSE 97; RESP 16; TEMP 96.5; O2SAT 97
[2016-11-12 19:23] VITALS: BP 146/69; PULSE 82; RESP 18; TEMP 96.7; O2SAT 99
[2016-11-12] MEDS: ACETAMINOPHEN/HYDROcodone 325 MG/5 MG TAB PO PRN (21:00)
[2016-11-12 23:39] VITALS: BP 129/66; PULSE 76; RESP 17; TEMP 97; O2SAT 95
[2016-11-13] MEDS: SODIUM CHLOR 0.9% 1000 ML INJ 1,000 ML IV SCH (00:34)
[2016-11-13] MEDS: ACETAMINOPHEN/HYDROcodone 325 MG/5 MG TAB PO PRN ×3 (00:52→17:10)
[2016-11-13 03:40] VITALS: BP 142/71; PULSE 86; RESP 18; TEMP 96.5; O2SAT 94
[2016-11-13 07:17] LABS: MEAN CELL VOLUME 88.6 FL (80.0-100.0); MEAN CORPUSCULAR HEMOGLOBIN 30.2 PG (27.0-34.0); MEAN CORPUSCULAR HGB CONC 34.1 % (32.0-36.0); PLATELET COUNT 341 TH/MM3 (150-450); RED BLOOD COUNT 3.16 MIL/MM3 (4.00-5.30); RED CELL DISTRIBUTION WIDTH 13.2 % (11.6-17.2); REVIEW FLAG FINAL; WHITE BLOOD COUNT 8.9 TH/MM3 (4.0-11.0)
[2016-11-13 07:33] LABS: BICARBONATE 25.7 MEQ/L (21.0-32.0); MAGNESIUM 1.8 MG/DL (1.5-2.5); POTASSIUM 3.4 MEQ/L (3.5-5.1)
[2016-11-13] MEDS ORDERED: DEXAMETHASONE SOD PHOS 20 MG/5 ML VIAL IV ONE (07:45)
[2016-11-13 08:00] VITALS: BP 146/67; PULSE 75; RESP 16; TEMP 96.8; O2SAT 96
[2016-11-13] MEDS ORDERED: ENOXAPARIN SODIUM 40 MG/0.4 ML SYRINGE SQ SCH (08:00)
[2016-11-13] MEDS: SODIUM CHLORIDE 0.9% FLUSH 5 ML FLUSH IVF SCH (09:00)
--- NOTE | 2016-11-13 09:43 | HHI.PR ---
Subjective Remarks resting comfortably with no distress. pain is controlled. no other complaints. Objective Vitals Vital Signs Date Time Temp Pulse Resp B/P Pulse Ox O2 Delivery O2 Flow Rate FiO2 11/13/16 03:40 96.5 86 18 142/71 94 11/12/16 23:39 97.0 76 17 129/66 95 11/12/16 22:00 18 11/12/16 19:23 96.7 82 18 146/69 99 11/12/16 16:00 96.5 97 16 137/73 97 11/12/16 14:00 97.8 86 18 150/78 98 11/12/16 13:30 97.7 86 16 145/72 95 Room Air 11/12/16 13:00 81 16 133/65 97 Nasal Cannula 2 11/12/16 12:00 80 16 125/62 96 Nasal Cannula 2 11/12/16 11:00 79 16 123/61 95 Nasal Cannula 2 11/12/16 10:30 78 15 121/59 98 Nasal Cannula 3 11/12/16 10:00 97.6 80 15 127/60 96 Nasal Cannula 3 11/12/16 09:45 81 15 129/58 95 Nasal Cannula 3 I/O 11/12/16 11/12/16 11/12/16 11/13/16 11/13/16 11/13/16 07:00 15:00 23:00 07:00 15:00 23:00 Intake Total 2230 ml 480 ml 480 ml Output Total 1000 ml Balance 1230 ml 480 ml 480 ml Intake Oral 480 ml 480 ml IV Total 730 ml Other 1500 ml Output Urine Total 350 ml Estimated Blood Loss 650 ml # Voids 1 4 2 # Bowel Movements 0 0 Result Diagram: 11/13/16 0557 11/13/16 0557 Imaging Last Impressions Hip and Pelvis X-Ray 11/12/16 0836 Signed Impressions: Service Date/Time: Saturday, November 12, 2016 09:19 - CONCLUSION: Good position and alignment on this postoperative examination. Giancarlo Young MD Hip X-Ray 11/12/16 0000 Signed Impressions: Service Date/Time: Saturday, November 12, 2016 07:15 - CONCLUSION: Good position and alignment on this postoperative examination. Giancarlo Young MD Objective Remarks GENERAL: This is a well-nourished, well-developed patient, in no apparent distress. CARDIOVASCULAR: Regular rate and regular rhythm without murmurs, gallops, or rubs. RESPIRATORY: Clear to auscultation. Breath sounds equal bilaterally. No wheezes , rales, or rhonchi. GASTROINTESTINAL: Abdomen soft, non-tender, nondistended. Normal, active bowel sounds MUSCULOSKELETAL: Extremities without clubbing, cyanosis, or edema. NEURO: Alert & Oriented x4 to person, place, time, situation. Moves all ext x4 Medications and IVs Current Medications Lactated Ringer's 1,000 ml @ 30 mls/hr Q24H PRN IV SEE LABEL COMMENTS Last administered on 11/12/16 06:00; Start 11/12/16 at 05:45; Stop 11/12/16 at 10:32; Status DC Sodium Chloride (NS 500 ml Inj) 500 ml @ 30 mls/hr [id number] PRN IV SEE LABEL COMMENTS; Start 11/12/16 at 05:45; Stop 11/12/16 at 10:32; Status DC Metoprolol Tartrate (Lopressor) 25 mg TON CYLINDER INSPECTOR PRN PO SEE LABEL COMMENTS; Start 11/12/16 at 05:45; Stop 11/15/16 at 05:44 Povidone Iodine (Betadine 5% Antisepsis Kit) 1 applic TON CYLINDER INSPECTOR PRN EACH NARE SEE LABEL COMMENTS Last administered on 11/12/16 05:50; Start 11/12/16 at 05:45; Stop 11/15/16 at 05:44 Chlorhexidine Gluconate (Chlorhexidine 2% Cloth) 3 pack TON CYLINDER INSPECTOR PRN TOPICAL SEE LABEL COMMENTS Last administered on 11/12/16 05:50; Start 11/12/16 at 05:45; Stop 11/15/16 at 05:44 Insulin Human Regular (NovoLIN R INJ) See Protocol Table ... TON CYLINDER INSPECTOR PRN SQ SEE PROTOCOL TABLE; Start 11/12/16 at 05:45; Stop 11/15/16 at 05:44 Povidone Iodine 1 applic 1 applic ONCE TOPICAL Last administered on 11/12/16 06 :02; Start 11/12/16 at 05:45; Stop 11/15/16 at 05:44 Cefazolin Sodium/ Dextrose 50 ml @ 100 mls/hr TON CYLINDER INSPECTOR IV Last administered on 11/12/16 05:59; Start 11/12/16 at 05:45; Stop 11/12/16 at 10:40; Status DC Vancomycin HCl 1000 mg/Sodium Chloride 250 ml @ 250 mls/hr TON CYLINDER INSPECTOR IV Last administered on 11/12/16 06:07; Start 11/12/16 at 05:45; Stop 11/13/16 at 05:44; Status DC Tranexamic Acid 618 mg/Sodium Chloride 106.18 ml @ 200 mls/ hr ONCE IV Last administered on 11/12/16 07:56; Start 11/12/16 at 07:00; Stop 11/12/16 at 13:00; Status DC Bupivacaine Liposome/Sodium Chloride (Exparel Pf 1.3% Inj/NS Inj) 60 ml @ 120 mls/hr ONCE P-ARTICULR Last administered on 11/12/16 07:57; Start 11/12/16 at 07 :00; Stop 11/12/16 at 13:00; Status DC Dexamethasone Sodium Phosphate (Decadron Inj) 10 mg TON CYLINDER INSPECTOR IV Last administered on 11/12/16 06:05; Start 11/12/16 at 06:00; Stop 11/12/16 at 10:42; Status DC Gentamicin Sulfate (Gentamicin Inj) 240 mg STK-MED ONCE .ROUTE Last administered on 11/12/16 07:56; Start 11/12/16 at 06:13; Stop 11/12/16 at 06:14; Status DC Acetaminophen (Ofirmev Inj) 1,000 mg STK-MED ONCE IV ; Start 11/12/16 at 06:36; Stop 11/12/16 at 06:37; Status DC Famotidine (Pepcid Inj) 20 mg STK-MED ONCE .ROUTE ; Start 11/12/16 at 06:37; Stop 11/12/16 at 06:38; Status DC Midazolam HCl (Versed Inj) 2 mg STK-MED ONCE .ROUTE ; Start 11/12/16 at 06:37; Stop 11/12/16 at 06:38; Status DC Fentanyl Citrate (fentaNYL INJ) 250 mcg STK-MED ONCE .ROUTE ; Start 11/12/16 at 06:37; Stop 11/12/16 at 06:38; Status DC Epinephrine HCl (Epipen Inj) 0.3 mg ONCE PRN IM ALLERGIC REACTION; Start at 08:45; Stop 11/19/16 at 08:44 Hydrochlorothiazide (Microzide) 12.5 mg DAILY PO Last administered on 11/12/16 15:29; Start 11/12/16 at 15:00 Pravastatin Sodium 40 mg 40 mg DAILY PO Last administered on 11/12/16 15:29; Start 11/12/16 at 15:00 Sodium Chloride (NS 1000 ml Inj) 1,000 ml @ 100 mls/hr Q10H IV Last administered on 11/13/16 00:34; Start 11/12/16 at 08:36 IV Flush (NS Flush) 2 ml UNSCH PRN IVF FLUSH AFTER USING IV ACCESS Last administered on 11/12/16 18:21; Start 11/12/16 at 08:45 IV Flush 2 ml 2 ml BID IVF Last administered on 11/12/16 15:29; Start 11/12/16 at 09:00 Cefazolin Sodium/ Sodium Chloride (Ancef Inj/NS Inj) 100 ml @ 200 mls/hr Q6H IV Last administered on 11/13/16 00:32; Start 11/12/16 at 12:00; Stop 11/13/16 at 00:29; Status DC Miscellaneous Information (Post-op Orders (for Pharmacy)) STAT ONCE XX ; Start 11/12/16 at 08:54; Stop 11/12/16 at 10:46; Status DC Dexamethasone Sodium Phosphate (Decadron Inj) 10 mg ONCE ONCE IV Last administered on 11/13/16 06:49; Start 11/13/16 at 07:45; Stop 11/13/16 at 07:46; Status DC Enoxaparin Sodium (Lovenox Inj) 40 mg Q24H SQ ; Start 11/13/16 at 08:00; Stop at 08:01 Acetaminophen/ Hydrocodone Bitart ([place] 5-325 Mg) 1 tab Q4H PRN PO PAIN LESS THAN 5 ON SCALE Last administered on 11/12/16 15:33; Start 11/12/16 at 08:45 Acetaminophen/ Hydrocodone Bitart 2 tab 2 tab Q4H PRN PO PAIN SCALE 5 TO 10 Last administered on 11/13/16 00:52; Start 11/12/16 at 08:45 Tranexamic Acid/ Sodium Chloride (Cyklokapron Inj/ NS Inj) 106.18 ml @ 200 mls / hr UNSCH IV Last administered on 11/12/16 10:43; Start 11/12/16 at 08:45; Stop 11/12/16 at 12:00; Status DC Multivitamins/ Minerals Therapeutic (Theragran M Tab) 1 tab BID PO ; Start at 21:00; Stop 01/12/17 at 20:59 Ondansetron HCl (Zofran Inj) 4 mg Q6H PRN IVP NAUSEA OR VOMITING; Start at 08:45 Docusate Sodium (Colace) 100 mg BID PO ; Start 11/13/16 at 21:00 Al Hydrox/Mg Hydrox/Simethicone (Mag-Al Plus Susp Liq) 30 ml Q6H PRN PO INDIGESTION; Start 11/12/16 at 08:45 Zolpidem Tartrate (Ambien) 5 mg HS PRN PO SLEEP; Start 11/12/16 at 08:45 Bisacodyl (Dulcolax Supp) 10 mg DAILY PRN RECTAL SEVERE CONSTIPATION; Start 11/12/16 at 08:45 Magnesium Hydroxide (Milk Of Magnesia Liq) 30 ml DAILY PRN PO MILD-MODERATE CONSTIPATION Last administered on 11/13/16 06:50; Start 11/12/16 at 08:45 Naloxone HCl (Narcan Inj) 0.4 mg UNSCH PRN IV RESPIRATORY RATE LESS THAN 10; Start 11/12/16 at 08:45 Diphenhydramine HCl (Benadryl Inj) 25 mg Q6H PRN IV ITCHING; Start 11/12/16 at 08:45 Morphine Sulfate (Morphine Inj) 2 mg Q3H PRN IV PUSH pain greater than 5; Start 11/12/16 at 08:45 Fentanyl Citrate (fentaNYL INJ) 250 mcg STK-MED ONCE .ROUTE ; Start 11/12/16 at 09:09; Stop 11/12/16 at 09:10; Status DC Morphine Sulfate (*morphine INJ PERIprocedure ONLY) 8 mg STK-MED ONCE .ROUTE Last administered on 11/12/16 09:33; Start 11/12/16 at 09:33; Stop 11/12/16 at 09: 34; Status DC A/P Assessment and Plan A/P s/p left total hip arthroplasty; continue with pain control and PT- management per ortho. anemia- post-op; will monitor H/H. Hypertension controlled on hydrochlorothiazide. Continue to monitor Hyperlipidemia controlled on Pravacho GERD stable on PPI name she cannot remember. RN to verify. DVT prophylaxis with Lovenox Magdi Tejada MD Nov 13, 2016 09:43
[2016-11-13] MEDS: PRAVASTATIN SOD 40 MG TAB PO SCH (10:01)
[2016-11-13] MEDS: HYDROCHLOROTHIAZIDE 12.5 MG CAP PO SCH (10:01)
[2016-11-13 12:00] VITALS: BP 142/70; PULSE 72; RESP 16; TEMP 96.6; O2SAT 97
--- NOTE | 2016-11-13 12:34 | PD.ORT.PN ---
Subjective Post Op Day #: 1 Subjective Remarks The patient is in bed resting comfortably with minimal pain. Patient anxious to be discharged home today. Objective Vitals Vital Signs Date Time Temp Pulse Resp B/P Pulse Ox O2 Delivery O2 Flow Rate FiO2 11/13/16 03:40 96.5 86 18 142/71 94 11/12/16 23:39 97.0 76 17 129/66 95 11/12/16 22:00 18 11/12/16 19:23 96.7 82 18 146/69 99 11/12/16 16:00 96.5 97 16 137/73 97 11/12/16 14:00 97.8 86 18 150/78 98 11/12/16 13:30 97.7 86 16 145/72 95 Room Air 11/12/16 13:00 81 16 133/65 97 Nasal Cannula 2 I/O 11/12/16 11/12/16 11/12/16 11/13/16 11/13/16 11/13/16 07:00 15:00 23:00 07:00 15:00 23:00 Intake Total 2230 ml 480 ml 480 ml Output Total 1000 ml Balance 1230 ml 480 ml 480 ml Intake Oral 480 ml 480 ml IV Total 730 ml Other 1500 ml Output Urine Total 350 ml Estimated Blood Loss 650 ml # Voids 1 4 2 # Bowel Movements 0 0 Result Diagram: 11/13/16 0557 11/13/16 0557 Procedures Left TERRI Objective Remarks The patient's dressing is changed with no drainage. Incision is well approximated with surgical clips intact. No redness or s/s of infection. EHL/ TA/G intact. 2+ pedal pulse. No calf swelling or tenderness. + SILT. Assessment & Plan Ortho Post Op Day #: 1 Problem List: Assessment and Plan POD #1: Left TERRI 1. WBAT LLE 2. Lovenox followed by ASA for DVT prophylaxis 3. Ice to the left hip PRN 4. Stable for discharge home with home health today. Nestor Ross Nov 13, 2016 12:33
[2016-11-13] MEDS ORDERED: DOCUSATE SODIUM 100 MG CAP PO SCH (21:00)
[2016-11-13] MEDS ORDERED: MULTIVITAMINS/MINERALS THERAPEUTIC TAB PO SCH (21:00)
--- NOTE | 2016-11-15 19:44 | HHI.DS ---
Discharge Summary Admission Date Nov 12, 2016 at 05:16 Discharge Date: Nov 13, 2016 Admitting Diagnosis OA of the left hip Status post total hip replacement, left Diagnosis: (1) Osteoarthritis of left hip Diagnosis: Principal (2) Status post total hip replacement, left Diagnosis: Principal Procedures Left TERRI Brief History This is a 76 year old female patient with severe left hip OA. CBC/BMP: 11/13/16 0557 11/13/16 0557 Significant Findings Laboratory Tests Test 11/13/16 05:57 Red Blood Count 3.16 MIL/MM3 (4.00-5.30) Hemoglobin 9.5 GM/DL (11.6-15.3) Hematocrit 28.0 % (35.0-46.0) Potassium Level 3.4 MEQ/L (3.5-5.1) Chloride Level 108 MEQ/L (98-107) Estimat Glomerular Filtration 73 ML/MIN (>89) Rate Random Glucose 143 MG/DL (74-106) PE at Discharge The patient's dressing is changed with no drainage. Incision is well approximated with surgical clips intact. No redness or s/s of infection. EHL/ TA/G intact. 2+ pedal pulse. No calf swelling or tenderness. + SILT. Hospital Course The patient was admitted to the hospital for severe left hip OA to have a left TERRI. The patient's surgery went well with no complications. The patient is WBAT on the LLE. The patient is on a regular diet. The patient was discharged home on Lovenox followed by ASA for DVT prophylaxis. The patient was discharged home with home health and will f/u in the office with Dr. Gomez as previously arranged. Pt Condition on Discharge: Stable Discharge Disposition: Disch w/ Home Health Serv Discharge Instructions Diet Instructions: As Tolerated, No Restrictions Activities You Can Perform: Weight Bearing as Scott Activities to Avoid: Strenuous Activity Follow up Referrals: Orthopedics with Cy Gomez MD SNF/[facility]/ with [facility] - [phone] New Medications: Aspirin (Aspirin) 325 Mg Tab 325 MG PO DAILY Start Aspirin after Lovenox is completed. Prevent Blood Clot # 30 Ref 0 TAB Commode 3-in-1 (Commode 3-in-1) 1 Mis Mis 1 EA .ROUTE DIRECTED #1 Ref 0 EA Enoxaparin Inj (Lovenox Inj) 40 Mg/0.4 Ml Syr 40 MG SQ DAILY Start Aspirin after Lovenox is completed. Blood Clot Prevention # 10 Ref 0 SYRINGE Hydrocodone-Acetaminophen ([place]) 5-325 mg Tab 1-2 TAB PO Q4H PRN PAIN #60 Ref 0 TAB Walker with Front Wheels (Walker with Front Wheels) 1 Mis Mis 1 EA .ROUTE DIRECTED #1 Ref 0 EA Continued Medications: Epinephrine Inj (Epipen 2-Pierre Inj) 0.3 Mg/0.3 Ml Pfpen 0.3 MG IM ONCE PRN ALLERGIC REACTION #1 Ref 0 PACK Hydrochlorothiazide (Hydrochlorothiazide) 12.5 Mg Cap 12.5 MG PO DAILY #30 Ref 0 CAP Lovastatin (Lovastatin) 40 Mg Tab 40 MG PO DAILY Cholesterol Management #30 Ref 0 TAB Nestor Ross Nov 15, 2016 19:44
== END 2016-11-13 17:33 | disposition home health service (06) | DRG 470 ==
LOC: HSDI 11-12 05:16 → N06B 11-12 13:51
PROVIDERS: ADMIT Orthopaedic Surgery; ATTEND Orthopaedic Surgery
PROC: 0SRB04A Replacement of Left Hip Joint with Ceramic on Polyethylene Synthetic Substitute, Uncemented, Open Approach (ICD-10-PCS; principal; 2016-11-12 06:51)
DX: M16.12 Unilateral primary osteoarthritis, left hip (principal); E87.0 Hyperosmolality and hypernatremia; D64.9 Anemia, unspecified; E87.8 Other disorders of electrolyte and fluid balance, not elsewhere classified; E78.5 Hyperlipidemia, unspecified; I10 Essential (primary) hypertension; K21.9 Gastro-esophageal reflux disease without esophagitis; Z87.891 Personal history of nicotine dependence
CPT/HCPCS: 73502; 76000; 80048; 83735; 85027; 86850; 86900; 86901; 94150; C1776; C9290; J0131; J0690; J1100; J1580; J1650; J2250; J2270; J2370; J2405; J3010; J3370; J7030; J7050; J7120